=== PATIENT | female | born 1950 | race Caucasian/White ===

== ENCOUNTER → 2022-05-12 14:10 | Outpatient (CLI) | payer MEDICARE, OTHER, SELFPAY ==
--- NOTE | ~2022-05-12 | MR_ITS ---
EXAMINATION: MR lumbar spine wo con DATE: 05/12/2022 14:47 INDICATION: Lumbago TECHNIQUE: Magnetic resonance imaging (MRI) of the lumbar spine was performed without intravenous con trast. Sequences included sagittal T2-weighted FSE, sagittal T2-weighted FS FSE, sagittal T1-weighted FSE, and axial T2-weighted FSE. COMPARISON: None FINDINGS: Alignment is normal. Vertebral body heights are normal. Severe disc height loss with fibrovascular de generative endplate changes at L2-L3. Moderate to severe right-sided predominant disc height loss wit h additional fibrovascular degenerative endplate changes at L5-S1. Moderate disc height loss at L3-L4 and L4-L5 and T10-T11, mild to moderate disc height loss at T11-T12 and mild disc height loss at T12 -L1 and L1-L2. There is diffuse mild epidural lipomatosis most evident at the lateral recesses. The c onus medullaris terminates at L1-L2. There is normal signal in the caudal spinal cord. Paravertebral soft tissues are unremarkable. The following disc levels are specifically discussed: T12-L1: Disc is mildly bulging. There is hypertrophy of the ligamentum flavum. There is mild left and mild to moderate right facet joint osteoarthritis. There is no neural foraminal stenosis. There is n o central canal stenosis. L1-L2: Disc is mildly bulging. There is hypertrophy of the ligamentum flavum. There is mild bilatera l facet joint osteoarthritis. There is mild bilateral neural foraminal stenosis. There is mild centra l canal stenosis. L2-L3: Disc is mildly bulging with small endplate osteophytes at the right foraminal zone. There is m ild bilateral facet joint osteoarthritis. There is moderate bilateral neural foraminal stenosis. Ther e is moderate central canal stenosis. L3-L4: Disc is mildly bulging with superimposed small central disc extrusion with disc material exten ding up to 4 mm cephalad to the level of the inferior endplate of L3. There is mild left and moderate right facet joint osteoarthritis. There is moderate left and mild to moderate right neural foraminal stenosis. There is moderate to severe central canal stenosis. L4-L5: Annular fissure and broad-based disc extrusion extending from foraminal zone to foraminal zone with disc material extending up to 4 mm cephalad to the level of the inferior endplate of L4. There is moderate bilateral facet joint osteoarthritis. There is small amount of fluid the artic ular surfaces of the bilateral facet joints suggesting potential for 2-3 mm of anterolisthesis of L4 on L5. There is mild to moderate bilateral neural foraminal stenosis. There is moderate central canal stenosis. L5-S1: Disc is mildly bulging. There is severe bilateral facet joint osteoarthritis. There is fluid f illing the right-sided facet joint spaces with approximate 6 mm AP separation of the articular cortic es suggesting potential for up to 6 mm of anterolisthesis of L5 on S1. There is moderate right and mi ld to moderate left neural foraminal stenosis. There is mild central canal stenosis. IMPRESSION: 1. Severe lumbar spondylosis. 2. Fluid the articular surfaces at the L4-L5 and more prominently at the L5-S1 facet joint s suggesting potential for up to 2-3 mm anterolisthesis of L4 on L5 and 6 mm anterolisthesis of L5 on S1. Could consider lateral flexion and extension radiographs of the lumbar spine to assess for trans latory motion. Reviewed, dictated and finalized at location A. IMPRESSION: 1. Severe lumbar spondylosis. 2. Fluid the articular surfaces at the L4-L5 and more prominently at the L5-S1 facet joints suggesting potential for up to 2-3 mm anterolisthesis o f L4 on L5 and 6 mm anterolisthesis of L5 on S1. Could consider lateral flexion and extension radiog
== END ==
PROVIDERS: PCP Internal Medicine; Visit Provider Nurse Practitioner Family
DX: M47.896 Other spondylosis, lumbar region (principal)
CPT/HCPCS: 72148